=== PATIENT | male | born 1995 | race Asian ===

== ENCOUNTER → 2020-07-08 | Outpatient (CLI) | payer BC ==
--- NOTE | 2020-07-08 16:56 | KCIC ---
STUDY: MRI of the right elbow without contrast INDICATION: Medial elbow pain. COMPARISON: 04/22/2020 radiographs. TECHNIQUE: Multiplanar MR imaging of the right elbow performed without the use of intravenous or intr a-articular contrast. FINDINGS: Bones/cartilage: Marrow edema at the capitellum extending to the subchondral region could be degenera tive in etiology. No high-grade chondral defect is apparent at the capitellum. Degenerative spurring across the ulnotrochlear joint such as seen at the coronoid process. There is also mild spurring efren g the olecranon process. Musculotendinous: Either a tiny low-grade tear or focal tendinosis at the common extensor origin, marta ge 15 series 6. Intact common flexor origin. Unremarkable triceps, biceps brachii and brachialis. Mus cular bulk is maintained. No localized muscular edema. Ligaments: Intact radial collateral ligament, lateral ulnar collateral ligament and annular ligament. The anterior bundle of the ulnar collateral ligament is intact. The posterior bundle is heterogeneou s in its humeral attachment concerning for a partial tear, image 17 series 6. Nerves: Within normal limits. No significant elbow joint effusion. Miscellaneous: No significant elbow joint effusion. IMPRESSION: 1. Suspected partial tear isolated to the posterior bundle of the ulnar collateral ligament near its humeral origin, image 17 series 6. The anterior bundle is intact. 2. 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 Capitellar edema extendin g to the subchondral region without a discrete overlying chondral defect. The constellation of findin gs could be related to valgus overload. Correlate for a history of overhead throwing/overuse. 3. Possible tiny low-grade tear at the common extensor origin versus a small focus of localized tend inosis, image 15 series 6. Electronically signed by: ANOOP HUNT MD (07/08/2020 4:53 PM) [id number]
== END ==
LOC: KCIC MRI 13:40
PROVIDERS: ATTEND Physician Assistant Medical
DX: M19.021 Primary osteoarthritis, right elbow (principal)
CPT/HCPCS: 73221